=== PATIENT | male | born 1995 | race Caucasian/White ===

== ENCOUNTER 2022-08-16 18:12 | Emergency (ER) | payer BC, OTHER ==
[2022-08-16] MEDS ORDERED: Sodium Chloride 0.9% 2.5 ML Syringe FLUSH PRN (18:27)
[2022-08-16] MEDS ORDERED: Sodium Chloride 0.9% 10 ML Syringe FLUSH PRN (18:27)
[2022-08-16] MEDS ORDERED: Ketorolac 30 MG/ML SDV IVPUSH ONE (18:41)
[2022-08-16] MEDS ORDERED: cefTRIAXone 1 GM in Sodium Chloride 0.9% 50 ML IV ONE (18:55)
[2022-08-16 19:13] LABS: CARBON DIOXIDE,CO2 26.6 mmol/L (21.0-32.0); POTASSIUM,K 3.9 mmol/L (3.5-5.1)
[2022-08-16] MEDS ORDERED: Iopamidol 755 MG/ML 500 ML Multipack Bottle IVPUSH ONE (19:18)
== END 2022-08-16 20:34 | disposition home or self-care (01) ==
LOC: MW.ED 18:12
DX: K11.21 Acute sialoadenitis (principal)
CPT/HCPCS: 36415; 70491; 80053; 83605; 85025; 87040; 96365; 96375; 99284; J0696; J1885; J3490; Q9967